=== PATIENT | male | born 1955 | race African-American/Black ===

== ENCOUNTER 2020-09-24 06:28 | Emergency (ER) | payer MEDICAID ==
[~2020-09-24] VITALS: Ht 182.9 cm; Wt 100.0 kg
[~2020-09-24 06:28] MED LIST: DOCU100C40 PO
[2020-09-24 06:37] VITALS: BP 126/63
[2020-09-24] MEDS ORDERED: CEPH250T PO (09:03)
== END 2020-09-24 09:28 | disposition home or self-care (01) ==
LOC: ER 06:29
DX: L02.413 Cutaneous abscess of right upper limb (principal); Z72.89 Other problems related to lifestyle; Z56.0 Unemployment, unspecified; Z79.2 Long term (current) use of antibiotics; Z79.899 Other long term (current) drug therapy
CPT/HCPCS: 10060; 10160; 99282; 99283; 99284

== ENCOUNTER 2021-04-09 17:02 | Emergency (ER) | payer MEDICAID ==
[~2021-04-09] VITALS: Ht 182.9 cm; Wt 90.0 kg
[~2021-04-09 17:02] MED LIST changes: +CEPH250T PO
[2021-04-09] MEDS ORDERED: normal saline 1000ML IV soln IVB ONE (17:30)
[2021-04-09 17:53] LABS: BASOPHILS # (AUTO) 0.1 X10'3 (0-0.2); BASOPHILS % (AUTO) 0.4 % (0-1); EOSINOPHILS # (AUTO) 0.1 X10'3 (0-0.9); EOSINOPHILS % (AUTO) 0.6 % (0-6); HEMATOCRIT 38.6 % (42.0-52.0); HEMOGLOBIN 12.7 g/dl (14.0-17.9); LYMPHOCYTES # (AUTO) 1.5 X10'3 (1.1-4.8); LYMPHOCYTES % (AUTO) 11.1 % (21-51); MEAN CORPUSCULAR HEMOGLOBIN 28.6 PG (27.0-31.0); MEAN CORPUSCULAR VOLUME 86.7 FL (78-98); MEAN PLATELET VOLUME 8.8 FL (7.4-10.4); MONOCYTES % (AUTO) 7.8 % (2-12); NEUTROPHILS # (AUTO) 10.5 X10'3 (1.8-7.7); NEUTROPHILS % (AUTO) 80.1 % (42-75); PLATELET COUNT 243 X10'3 (140-440); RED BLOOD COUNT 4.45 X10'6 (4.70-6.10); RED CELL DISTRIBUTION WIDTH 13.9 % (11.5-14.5); WHITE BLOOD COUNT 13.1 X10'3 (4.5-11.0)
[2021-04-09 18:11] LABS: ALANINE AMINOTRANSFERASE 29 U/L (12-78); ALBUMIN 3.6 G/DL (3.4-5.0); ALBUMIN/GLOBULIN RATIO 0.9 (1.1-1.5); ALKALINE PHOSPHATASE 101 IU/L (46-116); ANION GAP 7 (8-16); ASPARTATE AMINO TRANSFERASE 11 U/L (10-37); BILIRUBIN,TOTAL 0.7 MG/DL (0.1-1.0); BLOOD UREA NITROGEN 14 MG/DL (7-18); CALCIUM 8.7 MG/DL (8.5-10.1); CHLORIDE 100 MMOL/L (99-107); CREATININE 1.17 MG/DL (0.60-1.10); ETHANOL < 0.010 GM/DL (0.0-0.010); GLUCOSE 118 MG/DL (70-104); POTASSIUM 3.7 MMOL/L (3.5-5.1); SODIUM 137 MMOL/L (135-145); TOTAL CARBON DIOXIDE 29.7 MMOL/L (24-32); TOTAL PROTEIN 7.6 G/DL (6.4-8.2); eGFR 76 ML/MIN
[2021-04-09 18:52] VITALS: BP 129/74
[2021-04-09 19:45] LABS: URINE AMPHETAMINE SCREEN NEGATIVE (Neg); URINE BARBITUATE SCREEN NEGATIVE (Neg); URINE BENZODIAZEPINES SCREEN NEGATIVE (Neg); URINE CANNABINOID SCREEN NEGATIVE (Neg); URINE COCAINE SCREEN NEGATIVE (Neg); URINE METHADONE SCREEN NEGATIVE (Neg); URINE OPIATE SCREEN NEGATIVE (Neg); URINE PHENCYCLIDINE SCREEN NEGATIVE (Neg)
== END 2021-04-09 20:19 | disposition home or self-care (01) ==
LOC: ER 17:02
DX: E86.0 Dehydration (principal); Z20.822 Contact with and (suspected) exposure to COVID-19; D72.829 Elevated white blood cell count, unspecified; I95.1 Orthostatic hypotension; R19.7 Diarrhea, unspecified; R05.9 Cough, unspecified; F32.9 Major depressive disorder, single episode, unspecified; F17.200 Nicotine dependence, unspecified, uncomplicated; Z72.89 Other problems related to lifestyle; Z56.0 Unemployment, unspecified; Z79.2 Long term (current) use of antibiotics; Z79.899 Other long term (current) drug therapy
CPT/HCPCS: 36415; 71045; 80053; 80305; 80320; 83880; 84484; 85025; 87635; 93005; 96360; 99285; C9803; J7030

== ENCOUNTER 2024-08-23 16:28 | Emergency (ER) | payer MEDICARE, MEDICAID ==
[~2024-08-23] VITALS: Ht 182.9 cm; Wt 68.9 kg
[~2024-08-23 16:28] MED LIST changes: -CEPH250T PO
[2024-08-23] MEDS: TETanus/Pertussis (Acell)/Diphther VAC/PF (Tdap-Adult) 0.5ml syringe IMVAC ONE (18:41)
[2024-08-23] MEDS: LIDOcaine 1% 30ml preserv. free vial IJ ONE (19:54)
--- NOTE | 2024-08-23 20:44 | Physician Documentation ---
History of Present Illness ~ Chief Complaint: Laceration Stated Complaint: FINGER PAIN Time Seen by MD: 19:05 Primary Medical Doctor: ADY Hylton, UGO hylton [facility] This is a 68-year-old male who presents with a laceration to his left 2nd finger, patient reports that he was working on a car while idling and touched moving a serpentine belt on accident. Patient reports no loss of feeling or function in the finger. Tetanus Within 5 Years: Yes Medication Reconciliation Allergies: Coded Allergies: No Known Allergies (Unverified , 08/23/24) Scheduled Docusate Sodium (Docusate Sodium), 100 MG PO BID Past Medical History Past Medical History: Hemorrhoids, Depression Past Surgical History: other Alcohol Use: Occasionally Drug Use: none Occupation: unemployed Review of Systems ROS Laceration to left finger as stated above in the HPI, otherwise all systems are reviewed and negative. Physical Exam Vital Signs: Temperature: 96.8, Source: Temporal, Heart Rate: 87, Respiratory Rate: 15, BP: 112/65, Pulse Oximetry: 100, Weight: 68.900 Physical Exam VITALS: Reviewed and as above. GENERAL: Alert, nontoxic appearing, no apparent distress. RESPIRATORY: No increased work of breathing, no respiratory distress, speaking in full clear sentences MUSCULOSKELETAL: Full range of motion and strength in the digits of left hand, digits neurovascularly intact SKIN: 2.5 cm shallow laceration to the palmar aspect of the left 2nd finger, no tendon involvement, 1 cm superficial laceration to the posterior aspect of left 2nd finger Procedures Laceration/Wound Repair Laceration #1: Location: Volar aspect of left 2nd finger Length (cm): 2.5 Anesthesia: Lidocaine Volume Anesthetic (mls): 4 Prep: irrigated by nurse Irrigated w/ Saline (mls): 500 Margins: revised Foreign Body: not identified Repaired: skin Wound Repaired With: sutures Suture Size/Type: 5-0 Number of Superficial Sutures: 10 Dressing Applied: simple, gauze, non-adherent Splint Applied?: Yes Tolerated Procedure Well?: yes, no complications Laceration #2: Location: Dorsal aspect of the left 2nd finger Length (cm): 1 Anesthesia: other (As above) Prep: irrigated by nurse Irrigated w/ Saline (mls): 200 Margins: revised Repaired: skin Wound Repaired With: Dermabond Tolerated Procedure Well?: yes, no complications Progress Results/Orders Results/Orders Orders - ANA LILIA DONOVAN Laceration/I&D Tray Set Up (08/23/24 19:19) Completed Orders - ANA LILIA DONOVAN Lidocaine 1% 30ml Vial (Xylocaine 1% Via (08/23/24 19:20) Vital Signs 08/23/24 08/23/24 16:37 20:48 Temp 96.8 98.0 Pulse 87 87 Resp 15 16 B/P (MAP) 112/65 112/65 Pulse Ox 100 100 Medical Decision Making Findings This is a 68-year-old male who presented with lacerations to his left 2nd finger after accidentally contacting a running serpentine belt of an engine, lacerations were superficial and patient had full range of motion and sensation in fingers of the left hand, there was no obvious deformity and imaging was not indicated. Exam of laceration did not demonstrate evidence of tendon involvement or foreign body. Laceration successfully repaired without complications. Finger neurovascularly intact with brisk distal capillary refill. Remainder of physical exam was benign patient is appropriate for outpatient follow up. Patient provided home care instructions and return to care precautions which he verbalized understanding of. Differential Dx:Considerations: Include: Abrasion, Avulsion, Fracture, Neurovascular injury, Retained foreign body Departure Disposition: 01 HOME / SELF CARE / HOMELESS Impression: Primary Impression: Laceration Condition: Improved Discharge Instructions: Laceration Care, Adult, [id number], Laceration Care (Skin Glue) Additional Instructions: Keep the area clean dry and covered, please return to the emergency department, urgent care, or your primary care provider in seven days for wound recheck and possible suture removal. Please follow up with your primary care provider in the next few days. Please return to the emergency department for any new or worsening concerning symptoms including but not limited to increased pain and swelling to your finger, discharge from your finger, or if you develop a fever. Referrals: NO PRIMARY CARE PROVIDER (PCP) Education Educated: Patient Educated regarding: diagnosis, treatment, prognosis, need for follow up Signature Scribe Signature: No scribe Attestation: The note accurately reflects work and decisions made by me.MORGAN Lara 08/24/24 02:34 ANA LILIA DONOVAN August 23, 2024 20:44
[2024-08-23 20:48] VITALS: BP 112/65; PULSE 87; RESP 16; TEMP 98; O2SAT 100
== END 2024-08-23 20:49 | disposition home or self-care (01) ==
LOC: ER 16:29
DX: S61.211A Laceration without foreign body of left index finger without damage to nail, initial encounter (principal); F32.A Depression, unspecified; X58.XXXA Exposure to other specified factors, initial encounter; Y93.89 Activity, other specified; Y92.89 Other specified places as the place of occurrence of the external cause; Y99.8 Other external cause status
CPT/HCPCS: 12002; 90715; 99283; A6258; G0008; J7030; Z7610; 90471